=== PATIENT | female | born 1995 | race American Indian/Alaskan Native ===

== ENCOUNTER 2017-12-14 15:35 | Emergency (ER) | payer SELFPAY ==
[2017-12-14 16:06] VITALS: BP 123/78
[2017-12-14] MEDS ORDERED: TYLENOL PO ONE (17:25)
[2017-12-14] MEDS ORDERED: TYLENOL ONE (17:25)
[2017-12-14 17:26] LABS: HCG Qualitative,Urine Negative (Negative)
[2017-12-14 17:32] LABS: Bacteria,Urine 1+ /HPF (Negative); Bilirubin,Urine NEG (Negative); Blood,Urine NEG (Negative); Color,Urine Yellow (Yellow); Mucus,Urine FEW /HPF; Protein,Urine <15 mg/dL mg/dL (Negative)
[2017-12-14] MEDS ORDERED: TORADOL IM ONE (19:21)
--- NOTE | 2017-12-14 19:26 | Emergency Department Report ---
HPI - General Chief Complaint: Abdominal Pain Time Seen by Provider: 12/14/17 19:10 - HPI HPI: The patient is a 22-year-old female who presents for evaluation of abdominal pain. The patient reports left lower quadrant abdominal pain for the past 2-3 weeks, 10/10 in severity, crampy in quality, exacerbated with movement. She shares that she has a history of ovarian cysts. The patient denies fever, chills , night sweats, trauma to the abdomen, vomiting, diarrhea, blood in the stool, dark tarry stool, dysuria, hematuria, flank pain, vaginal discharge, vaginal bleeding, inability to pass flatus. ED Past Medical Hx - Past Medical History Previous Medical History?: No - Social History Smoking Status: Never Smoker Substance Use Type: None - Medications Home Medications: Home Medications Medication Instructions Recorded Confirmed Last Taken Type Fluconazole [Diflucan TAB] 150 mg PO ONCE #1 tablet 12/14/17 Unknown Rx Ibuprofen [Motrin] 800 mg PO Q8HR PRN #15 tablet 12/14/17 Unknown Rx Ondansetron [Zofran TAB] 4 mg PO Q8HR PRN #15 tablet 12/14/17 Unknown Rx metroNIDAZOLE [Flagyl] 500 mg PO Q12HR #14 tab 12/14/17 Unknown Rx traMADol [Ultram 50 MG tab] 50 mg PO Q6HR PRN #12 tablet 12/14/17 Unknown Rx ED Review of Systems ROS: Stated complaint: STOMACH AND BACK PAIN Other details as noted in HPI Constitutional: denies: fever ENT: denies: throat or neck pain Respiratory: denies: cough, shortness of breath Cardiovascular: denies: chest pain Endocrine: denies unexplained weight loss or gain Gastrointestinal: reports abdominal pain, nausea Genitourinary: denies: dysuria Musculoskeletal: denies: leg swelling Skin: denies: rash Neurological: denies: headache Hematological/Lymphatic: denies: easy bleeding or easy bruising Psych: denies sadness or hopelessness Physical Exam - Physical Exam Vital Signs: Vital Signs 12/14/17 12/14/17 16:04 17:26 Temperature 97.9 F Pulse Rate 76 Respiratory 20 18 Rate Blood Pressure 123/78 O2 Sat by Pulse 100 Oximetry Physical Exam: General: well-nourished, well-developed, no acute distress Head: Normocephalic, atraumatic Eyes: normal sclera ENT: Mucous membranes are pink and moist Neck: trachea midline, neck supple, No neck stiffness, no cervical adenopathy Respiratory: Breath sounds equal bilaterally, no wheezing, rales, or rhonchi Cardio: S1 and S2 present, no murmurs, rubs, gallops, capillary refill is brisk Abdomen: Normoactive bowel sounds, soft abdomen, LLQ tenderness to palpation present, no rigidity, no guarding or rebound tenderness Musc: No pitting edema Skin: No rash Neuro: no facial drooping, normal speech Psych: Normal affect ED Course Vital Signs 12/14/17 12/14/17 16:04 17:26 Temperature 97.9 F Pulse Rate 76 Respiratory 20 18 Rate Blood Pressure 123/78 O2 Sat by Pulse 100 Oximetry ED Medical Decision Making - Medical Decision Making The patient was seen and examined by myself. The patient is placed on a spare fixer and continuous pulse ox. On initial evaluation, the patient was found to be in no distress. Evaluation orders are placed. The patient's found to have negative test and unremarkable urinalysis. The patient is given an IM dose of Toradol for her pain. The patient was reevaluated and reported that their symptoms were improved. The patient is stable for discharge with outpatient follow-up. The patient is given follow-up and return instructions. The patient expressed understanding and agreed with the plan. The patient is discharged in stable condition. Critical care attestation.: If time is entered above; I have spent that time in minutes in the direct care of this critically ill patient, excluding procedure time. ED Disposition Clinical Impression: Abdominal pain, acute, left lower quadrant Disposition: - TO HOME OR SELFCARE Is pt being admited?: No Does the pt Need Aspirin: No Condition: Stable Instructions: Abdominal Pain (ED), Ovarian Cyst (ED) Referrals: ROBERT SRIVASTAVA MD [Staff Physician] - 3-5 Days [facility] [Provider Group] - 3-5 Days Time of Disposition: 19:21
== END 2017-12-14 19:54 | disposition home or self-care (01) ==
LOC: ED 15:35
DX: R10.32 Left lower quadrant pain (principal)
CPT/HCPCS: 81001; 81025; 96372; 99284; J1885

== ENCOUNTER 2018-07-10 05:52 | Emergency (ER) | payer MEDICAID ==
[2018-07-10 06:10] VITALS: BP 118/82
[2018-07-10 06:43] LABS: Bilirubin,Urine NEG (Negative); Blood,Urine NEG (Negative); Color,Urine Yellow (Yellow); Mucus,Urine FEW /HPF; Protein,Urine <15 mg/dL mg/dL (Negative)
[2018-07-10 06:53] LABS: Basophils # (Auto) 0.1 K/mm3 (0.0-0.1); Basophils % (Auto) 0.5 % (0.0-1.8); Eosinophils # (Auto) 0.1 K/mm3 (0.0-0.4); Eosinophils % (Auto) 1.1 % (0.0-4.3); Hematocrit 39.1 % (30.3-42.9); Lymphocytes # (Auto) 2.4 K/mm3 (1.2-5.4); Lymphocytes % (Auto) 21.2 % (13.4-35.0); Mean Corpuscular HGB Conc 33 % (30-34); Mean Corpuscular Hemoglobin 31 pg (28-32); Mean Corpuscular Volume 94 fl (79-97); Monocytes % (Auto) 8.9 % (0.0-7.3); Platelet Count 245 K/mm3 (140-440); Red Blood Count 4.15 M/mm3 (3.65-5.03); Red Cell Distribution Width 13.8 % (13.2-15.2)
[2018-07-10 07:05] LABS: BUN/Creatinine Ratio 13; Blood Urea Nitrogen 10 mg/dL (7-17); Hemolysis Index 20
== END 2018-07-10 07:30 | disposition left against medical advice (07) ==
LOC: ED 05:52
DX: R51 Headache (principal); R11.0 Nausea; Z53.21 Procedure and treatment not carried out due to patient leaving prior to being seen by health care provider
CPT/HCPCS: 36415; 80048; 81001; 84703; 85025

== ENCOUNTER 2018-07-10 14:02 | Emergency (ER) | payer MEDICAID ==
[2018-07-10 14:21] VITALS: BP 136/81
--- NOTE | 2018-07-10 15:39 | Emergency Department Report ---
ED Medical Clearance HPI - General Chief complaint: Medical Clearance Stated complaint: PAIN Time Seen by Provider: 07/10/18 15:17 Source: patient Mode of arrival: Ambulatory - History of Present Illness Initial comments: 23-year-old female to the emergency department complaining of 2 week history of occasional nausea and occasional vomiting. Says she wants to know if she is or not. Reports no abdominal pain, fever, chills, some sweats, chest pain, palpitations, headache, hematemesis, hematochezia, dysuria, , hematuria Alledged Intoxication: No Compliant with Home Medications: No Associated Symptoms: nausea/vomiting. denies: denies other symptoms, malaise, syncope, weakness Treatments Prior to Arrival: other (last time she vomited was 2 days ago) Home medications: Previous Rx's Medication Instructions Recorded Last Taken Type Fluconazole [Diflucan TAB] 150 mg PO ONCE #1 tablet 12/14/17 Unknown Rx Ibuprofen [Motrin] 800 mg PO Q8HR PRN #15 tablet 12/14/17 Unknown Rx Ondansetron [Zofran TAB] 4 mg PO Q8HR PRN #15 tablet 12/14/17 Unknown Rx metroNIDAZOLE [Flagyl] 500 mg PO Q12HR #14 tab 12/14/17 Unknown Rx traMADol [Ultram 50 MG tab] 50 mg PO Q6HR PRN #12 tablet 12/14/17 Unknown Rx Promethazine [Phenergan TAB] 25 mg PO Q8HR PRN #20 tab 07/10/18 Unknown Rx Allergies/Adverse reactions: Allergies Allergy/AdvReac Type Severity Reaction Status Date / Time No Known Allergies Allergy Unverified 12/14/17 16:05 ED Review of Systems ROS: Stated complaint: PAIN Other details as noted in HPI Constitutional: denies: chills, fever Eyes: denies: eye pain, eye discharge, vision change ENT: denies: ear pain, throat pain Respiratory: denies: cough, shortness of breath, wheezing Cardiovascular: denies: chest pain, palpitations Endocrine: no symptoms reported Gastrointestinal: nausea. denies: abdominal pain, diarrhea Genitourinary: denies: urgency, dysuria, discharge Musculoskeletal: denies: back pain, joint swelling, arthralgia Skin: denies: rash, lesions Neurological: denies: headache, weakness, paresthesias Psychiatric: denies: anxiety, depression Hematological/Lymphatic: denies: easy bleeding, easy bruising ED Past Medical Hx - Past Medical History Previous Medical History?: No - Surgical History Past Surgical History?: No - Social History Smoking Status: Never Smoker Substance Use Type: None - Medications Home Medications: Home Medications Medication Instructions Recorded Confirmed Last Taken Type Fluconazole [Diflucan TAB] 150 mg PO ONCE #1 tablet 12/14/17 Unknown Rx Ibuprofen [Motrin] 800 mg PO Q8HR PRN #15 tablet 12/14/17 Unknown Rx Ondansetron [Zofran TAB] 4 mg PO Q8HR PRN #15 tablet 12/14/17 Unknown Rx metroNIDAZOLE [Flagyl] 500 mg PO Q12HR #14 tab 12/14/17 Unknown Rx traMADol [Ultram 50 MG tab] 50 mg PO Q6HR PRN #12 tablet 12/14/17 Unknown Rx Promethazine [Phenergan TAB] 25 mg PO Q8HR PRN #20 tab 07/10/18 Unknown Rx ED Physical Exam - General Limitations: No Limitations General appearance: alert, in no apparent distress, other (no acute distress. Patient notes acute distress. Patient tolerates by mouth) - Head Head exam: Present: atraumatic, normocephalic - Eye Eye exam: Present: normal appearance - ENT ENT exam: Present: mucous membranes moist - Neck Neck exam: Present: normal inspection - Respiratory Respiratory exam: Present: normal lung sounds bilaterally. Absent: respiratory distress - Cardiovascular Cardiovascular Exam: Present: regular rate, normal rhythm. Absent: systolic murmur, diastolic murmur, rubs, gallop - GI/Abdominal GI/Abdominal exam: Present: soft, normal bowel sounds - Extremities Exam Extremities exam: Present: normal inspection - Back Exam Back exam: Present: normal inspection - Neurological Exam Neurological exam: Present: alert, oriented X3 - Psychiatric Psychiatric exam: Present: normal affect, normal mood - Skin Skin exam: Present: warm, dry, intact, normal color. Absent: rash ED Course Vital Signs 07/10/18 14:18 Temperature 98.5 F Pulse Rate 78 Respiratory 16 Rate Blood Pressure 136/81 O2 Sat by Pulse 100 Oximetry ED Disposition Clinical Impression: Negative test, Nausea Disposition: DC- TO HOME OR SELFCARE Is pt being admited?: No Does the pt Need Aspirin: No Condition: Stable Instructions: Acute Nausea and Vomiting (ED) Prescriptions: Promethazine [Phenergan TAB] 25 mg PO Q8HR PRN #20 tab PRN Reason: Nausea Referrals: [facility] [Primary Care Provider] - 3-5 Days
== END 2018-07-10 15:42 | disposition home or self-care (01) ==
LOC: ED 14:02
DX: Z32.02 Encounter for pregnancy test, result negative (principal); R11.2 Nausea with vomiting, unspecified
CPT/HCPCS: 99281

== ENCOUNTER 2019-02-15 18:57 | Emergency (ER) | payer MEDICAID ==
--- NOTE | 2019-02-15 19:28 | Emergency Department Report ---
Chief Complaint: Vaginal Bleeding Stated Complaint: PAIN/BLEEDING/MILD PRE CLAMYSIA Time Seen by Provider: 02/15/19 19:24 - HPI History of Present Illness: This is a 24 y.o. F. that presents to the ER with vaginal bleeding and pelvic pain. Preeclampsia LMP 11/17/2018, [employer] Dr. Cowan - Exam Vital Signs: Vital Signs 02/15/19 19:26 Temperature 98.8 F Pulse Rate 95 H Respiratory 18 Rate Blood Pressure 132/61 O2 Sat by Pulse 98 Oximetry MSE screening note: Focused history and physical exam performed. Due to findings the following was ordered: This initial assessment/diagnostic orders/clinical plan/treatment(s) is/are subject to change based on patient's health status, clinical progression and re- assessment by fellow clinical providers in the ED. Further treatment and workup at subsequent clinical providers discretion. Patient/guardians urged not to elope from the ED as their condition may be serious if not clinically assessed and managed. Initial orders include: 1- Patient sent to [facility] for further evaluation and treatment 2- Labs ED Disposition for MSE Condition: Stable
[2019-02-15 20:02] LABS: Basophils % (Auto) 0.6 % (0.0-1.8); Eosinophils # (Auto) 0.1 K/mm3 (0.0-0.4); Eosinophils % (Auto) 1.6 % (0.0-4.3); Hematocrit 37.8 % (30.3-42.9); Hemoglobin 12.8 gm/dl (10.1-14.3); Lymphocytes # (Auto) 1.8 K/mm3 (1.2-5.4); Lymphocytes % (Auto) 21.5 % (13.4-35.0); Mean Corpuscular HGB Conc 34 % (30-34); Mean Corpuscular Volume 95 fl (79-97); Monocytes # (Auto) 0.7 K/mm3 (0.0-0.8); Platelet Count 236 K/mm3 (140-440); Red Blood Count 3.98 M/mm3 (3.65-5.03); Red Cell Distribution Width 13.7 % (13.2-15.2)
[2019-02-15] MEDS ORDERED: TYLENOL PO ONE (21:48)
[2019-02-15 22:00] LABS: Bacteria,Urine 1+ /HPF (Negative); Bilirubin,Urine NEG (Negative); Blood,Urine NEG (Negative); Calcium Oxalate Crystals,Urine FEW; Color,Urine Yellow (Yellow); Mucus,Urine FEW /HPF; Protein,Urine <15 mg/dL mg/dL (Negative); Urobilinogen,Urine < 2.0 mg/dL (<2.0)
--- NOTE | 2019-02-15 22:02 | Ultrasound Report ---
PROCEDURE: US OB TRANSVAGINAL TECHNIQUE: Ultrasound obstetrical transvaginal HISTORY: vaginal bleeding, COMPARISONS: Correlated with today's transabdominal ultrasound FINDINGS: Single live intrauterine gestation present in cephalic presentation cardiac activity present with heart rate of 159 bpm. Cervical length 5.1 cm The placenta is marginal previa and grade 0 biometric measurements were obtained Biparietal diameter 16 weeks 2 days Head circumference 16 weeks 1 day. Normal circumference 16 weeks 2 days Femur length 14 weeks 5 days Based on today's exam estimated gestational age 15 weeks 6 days with estimated date of delivery Novem 2018 IMPRESSION: Marginal placenta previa. Continued follow-up recommended Single live intrauterine gestation estimated at 15 weeks 6 This document is electronically signed by Edil Whitaker MD., Feb 15 2019 09:59:39 PM ET
--- NOTE | 2019-02-15 22:04 | Ultrasound Report ---
PROCEDURE: US OB >= 14 WEEKS FETUS TECHNIQUE: HISTORY: vaginal bleeding, 15 wks gest COMPARISONS: FINDINGS: Single live intrauterine gestation present in cephalic presentation cardiac activity present with heart rate of 159 bpm. Cervical length 5.1 cm The placenta is marginal previa and grade 0 biometric measurements were obtained Biparietal diameter 16 weeks 2 days Head circumference 16 weeks 1 day. Abdominal circumference 16 weeks 2 days Femur length 14 weeks 5 days Based on today's exam estimated gestational age 15 weeks 6 days with estimated date of delivery Novem 2018 IMPRESSION: Marginal placenta previa. Continued follow-up recommended Single live intrauterine gestation estimated at 15 weeks 6 days . This document is electronically signed by Edil Whitaker MD., Feb 15 2019 10:02:34 PM ET
[2019-02-15] MEDS ORDERED: REGLAN PO ONE (23:01)
[2019-02-15] MEDS ORDERED: BENADRYL PO ONE (23:01)
[2019-02-15] MEDS ORDERED: ALUM-MAG HYDROX-SIMETH 200-200-20MG/5ML PO ONE (23:01)
[2019-02-15] MEDS ORDERED: BENTYL IM ONE (23:09)
--- NOTE | 2019-02-15 23:35 | Emergency Department Report ---
ED HPI - General Chief complaint: Vaginal Bleeding Stated complaint: PAIN/BLEEDING/MILD PRE CLAMYSIA Time Seen by Provider: 02/15/19 19:24 Source: patient Mode of arrival: Ambulatory Limitations: No Limitations - History of Present Illness Initial comments: This is a 24 y.o. F. that presents to the ER with vaginal bleeding and pelvic pain. Preeclampsia LMP 11/17/2018, [employer] Dr. Camryn SALINAS Complaint: vaginal bleeding, other (nausea and vomiting ) Onset/Timin -: month(s) Location: pelvis Radiation: none Severity: mild Severity scale (0 -10): 2 Quality: cramping Consistency: intermittent Improves with: rest Worsens with: movement Associated symptoms: nausea/vomiting, vaginal bleeding Vaginal bleeding: light (described as spotting ) :: Yes Number of weeks : 16 OB History - Current : placenta previa OB History - Previous Pregnancies: preeclampsia Last menstrual period: 10/04/18 Pre-[facility] care: followed by OB - Related Data : 2 Para: 1 Ab: 0 Previous Rx's Medication Instructions Recorded Last Taken Type Fluconazole [Diflucan TAB] 150 mg PO ONCE #1 tablet 12/14/17 Unknown Rx Ibuprofen [Motrin] 800 mg PO Q8HR PRN #15 tablet 12/14/17 Unknown Rx Ondansetron [Zofran TAB] 4 mg PO Q8HR PRN #15 tablet 12/14/17 Unknown Rx metroNIDAZOLE [Flagyl] 500 mg PO Q12HR #14 tab 12/14/17 Unknown Rx Promethazine [Phenergan TAB] 25 mg PO Q8HR PRN #20 tab 07/10/18 Unknown Rx Ibuprofen [Motrin] 600 mg PO Q8H PRN #30 tablet 09/20/18 Unknown Rx Ondansetron [Zofran Odt] 4 mg PO Q8HR PRN #20 tab.rapdis 09/20/18 Unknown Rx traMADol [Ultram 50 MG tab] 50 mg PO Q6HR PRN #20 tablet 09/20/18 Unknown Rx Acetaminophen [Acetaminophen TAB] 650 mg PO Q6HR PRN #60 tablet 02/15/19 Unknown Rx Metoclopramide [Reglan] 10 mg PO ACHS PRN #120 tablet 02/15/19 Unknown Rx Allergies Allergy/AdvReac Type Severity Reaction Status Date / Time latex Allergy Rash Verified 02/15/19 19:00 ED Review of Systems ROS: Stated complaint: PAIN/BLEEDING/MILD PRE CLAMYSIA Other details as noted in HPI Constitutional: denies: chills, fever Eyes: denies: eye pain, eye discharge, vision change ENT: denies: ear pain, throat pain Respiratory: denies: cough, shortness of breath, wheezing Cardiovascular: denies: chest pain, palpitations Endocrine: no symptoms reported Gastrointestinal: abdominal pain, nausea, vomiting. denies: diarrhea, constipation Genitourinary: denies: urgency, dysuria, frequency, hematuria, discharge, dyspareunia Musculoskeletal: denies: back pain, joint swelling, arthralgia Skin: denies: rash, lesions Neurological: as per HPI Psychiatric: denies: anxiety, depression Hematological/Lymphatic: as per HPI ED Past Medical Hx - Past Medical History Previous Medical History?: No - Surgical History Past Surgical History?: No - Social History Smoking Status: Never Smoker Substance Use Type: None - Medications Home Medications: Home Medications Medication Instructions Recorded Confirmed Last Taken Type Fluconazole [Diflucan TAB] 150 mg PO ONCE #1 tablet 12/14/17 Unknown Rx Ibuprofen [Motrin] 800 mg PO Q8HR PRN #15 tablet 12/14/17 Unknown Rx Ondansetron [Zofran TAB] 4 mg PO Q8HR PRN #15 tablet 12/14/17 Unknown Rx metroNIDAZOLE [Flagyl] 500 mg PO Q12HR #14 tab 12/14/17 Unknown Rx Promethazine [Phenergan TAB] 25 mg PO Q8HR PRN #20 tab 07/10/18 Unknown Rx Ibuprofen [Motrin] 600 mg PO Q8H PRN #30 tablet 09/20/18 Unknown Rx Ondansetron [Zofran Odt] 4 mg PO Q8HR PRN #20 tab.rapdis 09/20/18 Unknown Rx traMADol [Ultram 50 MG tab] 50 mg PO Q6HR PRN #20 tablet 09/20/18 Unknown Rx Acetaminophen [Acetaminophen TAB] 650 mg PO Q6HR PRN #60 tablet 02/15/19 Unknown Rx Metoclopramide [Reglan] 10 mg PO ACHS PRN #120 tablet 02/15/19 Unknown Rx ED Physical Exam - General Limitations: No Limitations General appearance: alert, in no apparent distress - Head Head exam: Present: atraumatic, normocephalic - Eye Eye exam: Present: normal appearance, PERRL, EOMI Pupils: Present: normal accommodation - ENT ENT exam: Present: mucous membranes moist - Neck Neck exam: Present: normal inspection, full ROM. Absent: tenderness, lymphadenopathy - Respiratory Respiratory exam: Present: normal lung sounds bilaterally. Absent: respiratory distress, wheezes, stridor, chest wall tenderness - Cardiovascular Cardiovascular Exam: Present: regular rate, normal rhythm, normal heart sounds. Absent: systolic murmur, diastolic murmur, rubs, gallop - GI/Abdominal GI/Abdominal exam: Present: soft, normal bowel sounds. Absent: distended, tenderness, guarding, rebound, rigid, bruit, hernia - Rectal Rectal exam: Present: deferred - External exam: Present: other (exam deferred per patient ) - Extremities Exam Extremities exam: Present: normal inspection - Back Exam Back exam: Present: normal inspection, full ROM. Absent: tenderness, CVA tenderness (R), CVA tenderness (L), muscle spasm, rash noted - Neurological Exam Neurological exam: Present: alert, oriented X3, CN II-XII intact, normal gait, reflexes normal - Psychiatric Psychiatric exam: Present: normal affect, normal mood - Skin Skin exam: Present: warm, dry, intact, normal color. Absent: rash ED Course Vital Signs 02/15/19 02/15/19 19:09 19:26 Temperature 98.8 F 98.8 F Pulse Rate 99 H 95 H Respiratory 18 18 Rate Blood Pressure 132/61 132/61 O2 Sat by Pulse 98 98 Oximetry ED Medical Decision Making - Lab Data Result diagrams: 02/15/19 19:31 Labs 02/15/19 02/15/19 02/15/19 19:31 19:31 19:31 WBC 8.3 RBC 3.98 Hgb 12.8 Hct 37.8 MCV 95 MCH 32 MCHC 34 RDW 13.7 Plt Count 236 Lymph % (Auto) 21.5 [place] % (Auto) 8.0 H Eos % (Auto) 1.6 Baso % (Auto) 0.6 Lymph # 1.8 [place] # 0.7 Eos # 0.1 Baso # 0.0 Seg Neutrophils % 68.3 Seg Neutrophils # 5.6 HCG, Qual Positive HCG, Quant 54552 H Urine Color Urine Turbidity Urine pH Ur Specific [place] Urine Protein Urine Glucose (UA) Urine Ketones Urine Blood Urine Nitrite Urine Bilirubin Urine Urobilinogen Ur Leukocyte Esterase Urine WBC (Auto) Urine RBC (Auto) U Epithel Cells (Auto) Urine Bacteria (Auto) Calcium Oxalate Crystal Urine Mucus Blood Type 02/15/19 02/15/19 19:31 19:56 WBC RBC Hgb Hct MCV MCH MCHC RDW Plt Count Lymph % (Auto) [place] % (Auto) Eos % (Auto) Baso % (Auto) Lymph # [place] # Eos # Baso # Seg Neutrophils % Seg Neutrophils # HCG, Qual HCG, Quant Urine Color Yellow Urine Turbidity Slightly-cloudy Urine pH 5.0 Ur Specific [place] 1.024 Urine Protein <15 mg/dl Urine Glucose (UA) Neg Urine Ketones Neg Urine Blood Neg Urine Nitrite Neg Urine Bilirubin Neg Urine Urobilinogen < 2.0 Ur Leukocyte Esterase Neg Urine WBC (Auto) 1.0 Urine RBC (Auto) 4.0 U Epithel Cells (Auto) 1.0 Urine Bacteria (Auto) 1+ Calcium Oxalate Crystal Few Urine Mucus Few Blood Type O POSITIVE - Radiology Data Radiology results: report reviewed, image reviewed Ultrasound Report Signed Patient: TASNEEM CASTELLANOS MR#: [id number] : 1995 Acct:[id number] Age/Sex: 24 / F ADM Date: 02/15/19 Loc: ED Attending Dr: Ordering Physician: SANTHOSH QUIJANO Date of Service: 02/15/19 Procedure(s): US OB transvaginal Accession Number(s): [id number] cc: SANTHOSH QUIJANO PROCEDURE: US OB TRANSVAGINAL TECHNIQUE: Ultrasound obstetrical transvaginal HISTORY: vaginal bleeding, COMPARISONS: Correlated with today's transabdominal ultrasound FINDINGS: Single live intrauterine gestation present in cephalic presentation cardiac activity present with heart rate of 159 bpm. Cervical length 5.1 cm The placenta is marginal previa and grade 0 biometric measurements were obtained Biparietal diameter 16 weeks 2 days Head circumference 16 weeks 1 day. Normal circumference 16 weeks 2 days Femur length 14 weeks 5 days Based on today's exam estimated gestational age 15 weeks 6 days with estimated date of delivery August 03, 2019 IMPRESSION: Marginal placenta previa. Continued follow-up recommended Single live intrauterine gestation estimated at 15 weeks 6 This document is electronically signed by Edil Beaver MD., Feb 15 2019 09:59:39 PM ET Transcribed By: YOBANY Dictated By: YASMIN BEAVER MD Electronically Authenticated By: YASMIN BEAVER MD Signed Date/Time: 02/15/192201 DD/ 50 TD/TT: 02/15/192050 - Medical Decision Making US: Single IUP 15 weeks and 6 days , marginal placenta previa , consulted obgyn court operations clerk , recommendation , reglan, follow up with OBGYN in 1-[address] Cowan return to ed if symptoms worsen, pt verbalized agreement and understanding with discharge plan , dc'd to home in stable condition at this time. Critical care attestation.: If time is entered above; I have spent that time in minutes in the direct care of this critically ill patient, excluding procedure time. ED Disposition Clinical Impression: Nausea and vomiting during prior to 22 weeks gestation, Vaginal bleeding before 22 weeks gestation Disposition: DC-01 TO HOME OR SELFCARE Is pt being admited?: No Does the pt Need Aspirin: No Condition: Stable Instructions: Acute Nausea and Vomiting (ED), (ED) Additional Instructions: Follow up with Dr. Aubrey Cowan in 1-2 days as directed [address] [place] [address] fax: [phone] Prescriptions: Acetaminophen [Acetaminophen TAB] 650 mg PO Q6HR PRN #60 tablet PRN Reason: Pain Metoclopramide [Reglan] 10 mg PO ACHS PRN #120 tablet PRN Reason: Nausea And Vomiting Referrals: [facility] [Provider Group] - 3-5 Days Forms: Work/School Release Form(ED) Time of Disposition: 23:48
[2019-02-16 00:35] VITALS: BP 104/59
== END 2019-02-16 00:20 | disposition home or self-care (01) ==
LOC: ED 18:57
DX: O46.92 Antepartum hemorrhage, unspecified, second trimester (principal); O21.9 Vomiting of pregnancy, unspecified; Z91.040 Latex allergy status; Z3A.15 15 weeks gestation of pregnancy
CPT/HCPCS: 36415; 76805; 76817; 81001; 84702; 84703; 85025; 86900; 86901; 96372; 99284; J0500